=== PATIENT | female | born 1970 | race Caucasian/White ===

== ENCOUNTER 2018-11-18 01:17 | Emergency (ER) | payer BC ==
[2018-11-18] MEDS ORDERED: ONDANSETRON HCL INJ/PF 4 MG/2 ML SDV IV ONE (04:27)
[2018-11-18 04:33] LABS: ABSOLUTE EOSINOPHILS # (AUTO) 0.1 10^3/uL (0.0-0.6); ABSOLUTE LYMPHOCYTES (AUTO) 2.2 10^3/uL (0.5-4.7); ABSOLUTE MONOCYTES (AUTO) 0.5 10^3/uL (0.1-1.4); ABSOLUTE NEUT (AUTO) 4.9 10^3/uL (1.7-8.2); BASOPHILS % (AUTO) 0.3 % (0-2); HEMATOCRIT 38.5 % (36.0-47.0); HEMOGLOBIN 13.1 g/dL (12.0-15.5); LYMPHOCYTES % (AUTO) 28.8 % (13-45); MEAN CORPUSCULAR HEMOGLOBIN 31.6 pg (27.0-33.4); MEAN CORPUSCULAR HGB CONC 34.1 g/dL (32.0-36.0); MEAN CORPUSCULAR VOLUME 93 fl (80-97); MONOCYTES % (AUTO) 6.2 % (3-13); PLATELET COUNT 255 10^3/uL (150-450); RED BLOOD COUNT 4.16 10^6/uL (3.72-5.28); RED CELL DISTRIBUTION WIDTH 13.7 % (11.5-14.0); SEGMENTED NEUTROPHILS % (AUTO) 63.7 % (42-78); TOTAL CELLS COUNTED % (AUTO) 100 %; WHITE BLOOD COUNT 7.7 10^3/uL (4.0-10.5)
[2018-11-18 04:47] LABS: APPEARANCE,URINE CLEAR; BILIRUBIN,URINE NEGATIVE (NEGATIVE); COLOR,URINE YELLOW; GLUCOSE, URINE NEGATIVE (NEGATIVE); KETONES,URINE NEGATIVE (NEGATIVE); LEUKOCYTE ESTERASE,URINE NEGATIVE (NEGATIVE); NITRITE,URINE NEGATIVE (NEGATIVE); PROTEIN,URINE NEGATIVE (NEGATIVE); URINE SPECIFIC GRAVITY 1.023; UROBILINOGEN,URINE NEGATIVE mg/dL (<2.0)
[2018-11-18 04:53] LABS: ALBUMIN 4.4 g/dL (3.5-5.0); ALKALINE PHOSPHATASE 57 U/L (38-126); ANION GAP 13 (5-19); ASPARTATE AMINO TRANSFERASE 91 U/L (14-36); BILIRUBIN,DIRECT 0.2 mg/dL (0.0-0.4); BILIRUBIN,TOTAL 1.1 mg/dL (0.2-1.3); BLOOD UREA NITROGEN 16 mg/dL (7-20); CALCIUM 10.2 mg/dL (8.4-10.2); CARBON DIOXIDE 25 mmol/L (22-30); CHLORIDE 100 mmol/L (98-107); GLUCOSE 163 mg/dL (75-110); POTASSIUM 4.7 mmol/L (3.6-5.0); TOTAL PROTEIN 7.7 g/dL (6.3-8.2)
[2018-11-18] MEDS ORDERED: KETOROLAC TROMETHAMINE INJ/PF 30 MG/1 ML SDV IV ONE (05:49)
[2018-11-18] MEDS ORDERED: NORMAL SALINE 1000 ML 1,000 ML IV ONE (05:50)
[2018-11-18] MEDS ORDERED: MORPHINE SULFATE 10 MG/ML INJ IV ONE (05:50)
--- NOTE | 2018-11-18 05:51 | ER Document Report ---
ED GI/ - General Chief Complaint: Abdominal Pain Stated Complaint: FLANK PAIN Time Seen by Provider: 11/18/18 05:44 Notes: Patient is a 48-year-old female that comes emergency department for chief complaint of sudden onset sharp right flank pain radiating around to the right mid to lower abdomen that started tonight. She vomited 3 times. She denies fevers, she denies any other complaints. She comes by EMS. She states she has had kidney stones years ago and last time it was so bad she needed lithotripsy to pass it, she does not currently have a urologist. She also reports a history of cholecystectomy, type 2 diabetes. She denies medical history otherwise except hysterectomy with a right oophorectomy. Patient received 4 mg of Zofran and states this did take away her nausea but she still has waves of pain. TRAVEL OUTSIDE OF THE [place] IN LAST 30 DAYS: No - Related Data Allergies/Adverse Reactions: Sulfa (Sulfonamide Antibiotics) Allergy (Verified 11/18/18 01:55) Past Medical History - General Information source: Patient - Social History Smoking Status: Never Smoker Frequency of alcohol use: None Drug Abuse: None Lives with: Family Family History: Reviewed & Not Pertinent Patient has suicidal ideation: No Patient has homicidal ideation: No Endocrine Medical History: Reports: Hx Diabetes Mellitus Type 2 Renal/ Medical History: Reports: Hx Kidney Stones Past Surgical History: Reports: Hx Cholecystectomy, Hx Hysterectomy Review of Systems - Review of Systems Constitutional: No symptoms reported EENT: No symptoms reported Cardiovascular: No symptoms reported Respiratory: No symptoms reported Gastrointestinal: See HPI Genitourinary: See HPI Female Genitourinary: No symptoms reported Musculoskeletal: No symptoms reported Skin: No symptoms reported Hematologic/Lymphatic: No symptoms reported Neurological/Psychological: No symptoms reported Physical Exam - Vital signs Vitals: Temp Pulse Resp BP Pulse Ox 98.3 F 83 16 125/81 97 11/18/18 01:28 11/18/18 01:28 11/18/18 01:28 11/18/18 01:28 11/18/18 01:28 - Notes Notes: GENERAL: Alert, interacts well. No acute distress. HEAD: Normocephalic, atraumatic. EYES: Pupils equal, round, and reactive to light. Extraocular movements intact. ENT: Oral mucosa moist, tongue midline. Oropharynx unremarkable. Airway patent. LUNGS: Clear to auscultation bilaterally, no wheezes, rales, or rhonchi. No respiratory distress. HEART: Regular rate and rhythm. No murmur ABDOMEN: Some general right sided mid to lower abdominal tenderness without specific guarding or severe tenderness. Bowel sounds present. GENITOURINARY: Deferred EXTREMITIES: Moves all 4 extremities spontaneously. No edema, normal radial and dorsalis pedis pulses bilaterally. No cyanosis. BACK: Some right-sided CVA tenderness. No severe tenderness. No cervical, thoracic, lumbar midline tenderness. No saddle anesthesia, normal distal neurovascular exam. Moves all extremities in full range of motion. NEUROLOGICAL: Alert and oriented x3. Normal speech. Cranial nerves II through XII grossly intact. PSYCH: Normal affect, normal mood. SKIN: Warm, dry, normal turgor. No rashes or lesions noted. Course - Re-evaluation Re-evalutation: Protocol had been initiated before I saw the patient, this did include hCG despite patient have a hysterectomy, this was positive. I did obtain beta hCG quantitative, this is 8. Patient confirmed to have a hysterectomy on imaging, also confirmed to have a 3 mm right-sided ureterolithiasis with some hydronephrosis. No concerning findings otherwise. I did provide patient with both a copy of her CAT scan and a copy of her beta-hCG and discussed trending of this with primary care to make sure she did not have an exogenous source that was secreting this that could be concerning, patient states she will absolutely follow-up with this. She is out of town visiting and has urology and primary care back home. CBC unremarkable, chemistry unremarkable, urine shows 5 white blood cells, no leukocyte esterase or bacteria, no nitrites. Culture placed. No fever. Discussed plan, treatment at home, follow-up, and return precautions in detail with patient. Patient asymptomatic after medications. Alert and well- appearing. Stable at time of discharge. Patient states appreciation and agreement. - Vital Signs Vital signs: Temp Pulse Resp BP Pulse Ox 97.9 F 80 16 106/73 94 11/18/18 06:27 11/18/18 06:27 11/18/18 06:27 11/18/18 06:27 11/18/18 06:27 - Laboratory Result Diagrams: 11/18/18 04:05 11/18/18 04:05 Laboratory results interpreted by me: 11/18/18 11/18/1811/18/19 04:05 04:05 04:05 Glucose 163 H AST 91 H Serum HCG, Qual POSITIVE H Beta HCG, Quant Urine Blood MODERATE H 11/18/18 04:05 Glucose AST Serum HCG, Qual Beta HCG, Quant 8.71 H Urine Blood Discharge - Discharge Clinical Impression: Flank pain, Ureterolithiasis Abdominal pain Qualifiers: Abdominal location: lower abdomen, unspecified Qualified Code(s): R10.30 - Lower abdominal pain, unspecified Vomiting Qualifiers: Vomiting type: unspecified Vomiting Intractability: non-intractable Nausea presence: with nausea Qualified Code(s): R11.2 - Nausea with vomiting, unspecified Condition: Stable Disposition: HOME, SELF-CARE Additional Instructions: You have are passing a 3 mm kidney stone on the right side, you also have multiple kidney stones in your kidneys that may pass in the future, please follow-up with urology back home. Take Percocet for pain if needed, you can also take ibuprofen with this for pain, take Zofran if needed for nausea. Drink plenty of fluids. Your beta hCG was actually positive, this is most likely from a different source or a false positive, have this trended with primary care as we discussed. Return if you worsen including fever, severe worsening pain, uncontrolled vomiting, or any other concerning symptoms. Prescriptions: Oxycodone HCl/Acetaminophen [Percocet 5-325 mg Tablet] 1 - 2 tab PO TID PRN #15 tablet PRN Reason: Ondansetron [Zofran Odt 4 mg Tablet] 1 - 2 tab PO Q4H PRN #15 tab.rapdis PRN Reason: For Nausea/Vomiting Forms: Return to Work
[2018-11-18 06:27] VITALS: BP 106/73
--- NOTE | 2018-11-18 07:15 | RADIOLOGY REPORT (SQ) ---
EXAM DESCRIPTION: CT ABDOMEN PELVIS WITHOUT IV CONTRAST COMPLETED DATE/TME: 11/18/2018 05:50 CLINICAL HISTORY: 48 years, Female, right flank pain, vomiting COMPARISON: None. TECHNIQUE: Axial CT images of the abdomen and pelvis were obtained without contrast. Sagittal and coronal reformats were performed. DLP 690 Images stored on PACS. All CT scanners at this facility use dose modulation, iterative reconstruction, and/or weight based dosing when appropriate to reduce radiation dose to as low as reasonably achievable (ALARA). [facility]: Dose Right [facility]: CareDose [facility]: Dose Right [facility]: Teradose 4D [facility]: [employer] LIMITATIONS: None. FINDINGS: The lung bases are clear. There is a 1.2 cm hypodensity within the right hepatic lobe, which may represent a cyst or hemangioma. Cholecystectomy. The pancreas, spleen, and adrenal glands are unremarkable. There is a 3 mm stone within the right UVJ causing mild hydroureter and hydronephrosis. There are additional punctate calcifications within the right kidney. There is a 7 mm nonobstructing stone along the upper pole the left kidney. There is no intraperitoneal free air or fluid. There is no lymphadenopathy. There are atherosclerotic calcifications of the abdominal aorta without evidence of aneurysm. The stomach, small bowel, and appendix appear unremarkable. There is a moderate amount stool within the colon. Urinary bladder is unremarkable. Hysterectomy. There are no lytic or blastic bone lesions. IMPRESSION: 3 mm stone within the right UVJ causing mild hydronephrosis and hydroureter. Bilateral nonobstructing nephrolithiasis. TECHNICAL DOCUMENTATION: Quality ID # [id number]: Final reports with documentation of one or more dose reduction techniques (e.g., Automated exposure control, adjustment of the mA and/or kV according to patient size, use of iterative reconstruction technique) copyright 2010 [employer]- All Rights Reserved
[2018-11-18] MEDS ORDERED: HYDROCODONE/ACETAMINOPHEN 5-325 MG (6 TAB/ER DISP) PO PRN (07:24)
== END 2018-11-18 07:38 | disposition home or self-care (01) ==
LOC: ER 01:17
DX: N13.2 Hydronephrosis with renal and ureteral calculous obstruction (principal); R11.2 Nausea with vomiting, unspecified; E11.9 Type 2 diabetes mellitus without complications; Z32.01 Encounter for pregnancy test, result positive; Z88.2 Allergy status to sulfonamides; Z90.710 Acquired absence of both cervix and uterus; Z90.721 Acquired absence of ovaries, unilateral
CPT/HCPCS: 36415; 84702; 83690; 84703; 85025; 80053; 81001; 74176; J1885; J2270; J2405; J7030; 87086